=== PATIENT | female | born 1965 | race Caucasian/White ===

== ENCOUNTER → 2017-02-27 | Outpatient (CLI) | payer MEDICARE, OTHER ==
[2014-11-21 17:16] VITALS: BP 159/72
[~2017-02-27] MED LIST: ASCO1500 PO; ASPI-630 PO; ATOR20TA PO; Albuterol Sulfate NEB; CALC600T15 PO; CIPR500T6 PO; CLON0.5T PO; LIDO700A4 TP; OXCA300T3 PO; PANT40TA3 PO; PRAZ2CAP2 PO; QUET100T4 PO; QUET300T5 PO; TRAM-48 PO; VITA150T PO
--- NOTE | 2017-02-28 08:31 | RAD ---
Indication knee pain. 2 AP standing views incorporating both knees were obtained as well as a lateral view involving the left knee and again a sunrise view incorporating both knees. Note is made of a previous examination 08/12/2013. There are degenerative changes involving the left knee which have progressed relative to the previous exam. This is manifested primarily as medial joint space compartment narrowing and some patellofemoral narrowing. Very mild degenerative change involving the medial joint space compartment of the right knee is additionally noted. IMPRESSION: Degenerative changes involving both knees left greater than right
== END | disposition home or self-care (01) ==
LOC: DXRAD 09:20
PROVIDERS: ATTEND Orthopaedic Surgery
DX: M17.0 Bilateral primary osteoarthritis of knee (principal)
CPT/HCPCS: 73564

== ENCOUNTER → 2017-04-04 | Outpatient (CLI) | payer MEDICARE, OTHER ==
[2014-11-21 17:16] VITALS: BP 159/72
--- NOTE | 2017-04-04 08:33 | RAD ---
Abdominal ultrasound, 04/04/2017: History: Right upper quadrant pain The gallbladder is within normal limits in size. There is no sonographic evidence of cholelithiasis. The gallbladder wall is at the upper limits of normal in thickness. The common hepatic duct measures 7-8 mm which is mildly enlarged. The distal duct was obscured by overlying bowel. No intrahepatic biliary ductal dilatation is seen. The liver measures 19-20 cm in craniocaudad extent. It demonstrates increased echogenicity, most commonly due to fatty change. No hepatic mass is evident. The visualized portions of the pancreatic body are unremarkable. Other portions of the pancreas were obscured by overlying bowel. The inferior vena cava and aorta were also poorly visualized due to bowel. The spleen is at the upper limits of normal in size measuring 13.3 cm in craniocaudad extent. The kidneys are unremarkable. No free fluid is evident in the abdomen. IMPRESSION: 1. Mild hepatomegaly with increased hepatic echogenicity suggesting hepatic steatosis. 2. Borderline splenomegaly. 3. Mild enlargement of the common hepatic duct. Correlation with laboratory findings is suggested in determining the significance of this finding. 4. No sonographic evidence of cholelithiasis.
== END | disposition home or self-care (01) ==
LOC: US 06:58
PROVIDERS: ATTEND Nurse Practitioner Family
DX: R10.11 Right upper quadrant pain (principal); R74.8 Abnormal levels of other serum enzymes; R16.0 Hepatomegaly, not elsewhere classified
CPT/HCPCS: 76700

== ENCOUNTER → 2017-04-08 | Outpatient (CLI) | payer MEDICARE, OTHER ==
[2014-11-21 17:16] VITALS: BP 159/72
--- NOTE | 2017-04-08 14:46 | RAD ---
CT abdomen and pelvis without contrast 04/08/2017 Clinical indication: Right upper quadrant pain, flank pain, hematuria for 6 months. Comparison: None. Technique: Multiple CT helical acquisition of the abdomen and pelvis is obtained without contrast according to standard protocol. Coronal sagittal reformations were obtained. PQRS Compliance Statement: One or more of the following individualized dose reduction techniques were utilized for this examination: 1. Automated exposure control 2. Adjustment of the mA and/or kV according to patient size 3. Use of iterative reconstruction technique Findings: Abdomen and pelvis: 3 mm noncalcified nodule in the left lung base which does not need to be followed according to new guidelines. Minimal linear atelectasis and/or scarring in the lingula. Heart size is normal with partial visualization of coronary artery calcifications. Evaluation of the solid abdominopelvic viscera, lymphadenopathy and vasculature is limited in the absence of intravenous contrast. There is moderate diffuse hepatic steatosis with areas of focal fatty sparing adjacent to the gallbladder fossa. Unenhanced contour of the gallbladder, spleen, adrenal glands and pancreas are within normal limits. Both council kidneys are present without hydroureteronephrosis or urolithiasis. Abdominal aorta is normal in caliber with mild aortoiliac calcified atheromatous disease. Small and large bowel loops are normal in caliber without obstruction. Appendix is normal in appearance. No abdominal free fluid. No retroperitoneal or mesenteric lymphadenopathy. Mildly distended and unopacified urinary bladder within normal limits. Prior hysterectomy with the vaginal cuff within normal limits. No iliac or inguinal lymphadenopathy. No pelvic free fluid. There are no destructive osseous lesions. Impression: 1. Moderate diffuse hepatic steatosis. Clinical correlation with liver enzymes is recommended. 2. No urolithiasis or hydroureteronephrosis.
== END | disposition home or self-care (01) ==
LOC: CT 12:32
PROVIDERS: ATTEND Nurse Practitioner Family
DX: K76.0 Fatty (change of) liver, not elsewhere classified (principal); R31.9 Hematuria, unspecified
CPT/HCPCS: 74176

== ENCOUNTER → 2017-10-27 | Outpatient (CLI) | payer MEDICARE, OTHER ==
[2014-11-21 17:16] VITALS: BP 159/72
[~2017-10-27] VITALS: Ht 162.6 cm; Wt 104.3 kg
[~2017-10-27] MED LIST changes: +SINCALIDE 2.09 MCG in IV NORMAL SALINE 50ML 30 ML IV ONE
--- NOTE | 2017-10-27 12:24 | RAD ---
Hepatobiliary scan with gallbladder ejection fraction Clinical indications: Chronic persistent right upper quadrant pain. Nausea and vomiting. Technique: After IV infusion of 5.5 mCi of technetium 99m Choletec, anterior and right lateral planar images of the upper abdomen were performed in sequential fashion and a time/activity curve was generated. After IV infusion of 2.1 uCi of cholecystokinin, anterior planar images of the upper abdomen were performed in sequential fashion and a time/activity curve was generated and a gallbladder ejection fraction was measured and calculated. Comparison: No previous nuclear medicine scan available for comparison. Abdomen ultrasound study dated April 04, 2017. Findings: Homogeneous uptake is seen throughout the liver. Radiotracer activity is seen within the gallbladder x 30 minutes. Radiotracer activity is seen within the duodenum x 10 minutes. Gallbladder ejection fraction is measured and calculated to be 29.5%. Normal is greater than 35%. IMPRESSION: Cystic duct is patent. Low gallbladder ejection fraction of 29.5%.
== END | disposition home or self-care (01) ==
LOC: NM 07:45
PROVIDERS: ATTEND Internal Medicine Gastroenterology
DX: G89.29 Other chronic pain (principal); R10.11 Right upper quadrant pain; J44.9 Chronic obstructive pulmonary disease, unspecified; I10 Essential (primary) hypertension; F17.200 Nicotine dependence, unspecified, uncomplicated; Z95.5 Presence of coronary angioplasty implant and graft
CPT/HCPCS: 78226; 96374; 96375; A9537; J2805

== ENCOUNTER → 2018-11-03 | Outpatient (CLI) | payer OTHER ==
[2014-11-21 17:16] VITALS: BP 159/72
[~2018-11-03] MED LIST changes: +IOHEXOL 240 MG/ML 50ML VIAL. ONE; +IOHEXOL 300 MG/ML 75 ML VIAL. IV ONE; -SINCALIDE 2.09 MCG in IV NORMAL SALINE 50ML 30 ML IV ONE
--- NOTE | 2018-11-03 12:12 | RAD ---
CT ABD PEL W/ORAL CONTRST ONLY Indication: Right upper quadrant and right lower quadrant periumbilical pain for 4 days, epigastric discomfort Technique: CT imaging was performed of the abdomen and pelvis, multiplanar reconstruction images submitted. No intravenous contrast was given due to inability to obtain adequate intravenous access. Oral contrast was given. One or more of the following individualized dose reduction techniques were utilized for this examination: 1. Automated exposure control 2. Adjustment of the mA and/or kV according to patient size 3. Use of iterative reconstruction technique. Comparison: April 08, 2017 Findings: There is again mild likely fibrotic change of the lingula. Accurate evaluation of abdominal visceral organs is limited without intravenous contrast, no new obvious focal abnormality liver, spleen, pancreas. There has been cholecystectomy. There is now mild right hydronephrosis, no obstructive calculus. There is no hydroureter or renal calculus. There is no adrenal nodularity. Gastric wall thickening is difficult to exclude although findings could be accentuated by incomplete distention. Bowel is not considered significantly dilated. There is no free air or free fluid. Normal caliber appendix is visualized without adjacent inflammatory-type change. Uterus is absent. There is multilevel lumbar facet degenerative change, minimal grade 1 anterior spondylolisthesis L4-5. There is degenerative disc disease greatest L3-4 and L4-5, also at T12-L1. There is likely at least mild lateral recess stenosis greater on the left at L4-5. IMPRESSION: 1. There is now mild right hydronephrosis, no right hydroureter or obstructive calculus identified. Gastric wall thickening as could be associated with gastritis is difficult to exclude although findings could be due to incomplete distention. Otherwise no significant acute abnormality is identified, no CT evidence of acute appendicitis. 2. There is facet degenerative change greater inferiorly of the lumbar spine. There is likely at least mild lateral recess stenosis L4-5, grade 1 anterior spondylolisthesis L4-5. There is degenerative disc disease greatest at L3-4 and L4-5. Electronically signed by: Wes Licona MD (11/03/2018 12:09 PM) [id number]
== END | disposition home or self-care (01) ==
LOC: CT 10:33
PROVIDERS: ATTEND Nurse Practitioner Family
DX: M43.16 Spondylolisthesis, lumbar region (principal); M51.36 Other intervertebral disc degeneration, lumbar region; M47.896 Other spondylosis, lumbar region; N13.39 Other hydronephrosis
CPT/HCPCS: 36415; 74176; 82565; 84520

== ENCOUNTER 2018-12-29 12:56 | Emergency (ER) | payer OTHER ==
[~2018-12-29] VITALS: Ht 162.6 cm; Wt 106.1 kg
[~2018-12-29 12:56] MED LIST changes: -IOHEXOL 240 MG/ML 50ML VIAL. ONE; -IOHEXOL 300 MG/ML 75 ML VIAL. IV ONE
[2018-12-29] MEDS ORDERED: IV NORMAL SALINE 1,000ML 1,000 ML IV SCH (13:02)
--- NOTE | 2018-12-29 13:14 | PHYS DOC ---
Past History Past Medical History: COPD, Heart Disease Past Surgical History: Hysterectomy Alcohol Use: None Drug Use: None Adult General Chief Complaint Chief Complaint: CHEST PAIN HPI HPI 53-year-old female presents via EMS with sudden onset central chest pain. She describes it as a sharp and heavy feeling in her central chest that started 1 hour prior to arrival. The pain was 10 out of 10. She took 2 nitros at home which improved the pain to an 8 out of 10. She was given a third nitroglycerin by EMS as well as a full strength aspirin. Her pain is currently 4 out of 10. She states the pain was worse with deep breathing and she had some mild shortness of breath. She denies nausea, vomiting, diaphoresis. The patient has a history of one stent placed several years ago. Her most recent stress test was about 2 years ago. She does see a parts sales associate regularly. She also has a history of diabetes, hypertension, CHF, COPD. She denies recent symptoms of illness. She denies fever or chills. The patient has had increased stress lately. Review of Systems Review of Systems Constitutional: Denies fever or chills [] Eyes: Denies change in visual acuity, redness, or eye pain [] HENT: Denies nasal congestion or sore throat [] Respiratory: Mild shortness of breath [] Cardiovascular: No additional information not addressed in HPI [] GI: Denies abdominal pain, nausea, vomiting, bloody stools or diarrhea [] : Denies dysuria or hematuria [] Musculoskeletal: Denies back pain or joint pain [] Integument: Denies rash or skin lesions [] Neurologic: Denies headache, focal weakness or sensory changes [] Endocrine: Denies polyuria or polydipsia [] All other systems were reviewed and found to be within normal limits, except as documented in this note. Current Medications Current Medications Current Medications Medications (Trade) Dose Ordered Sig/Florin Start Time Stop Time Status Last Admin Dose Admin Sodium Chloride 1,000 ml @ 1,000 mls/hr Q1H 12/29/18 13:02 12/29/18 14:01 UNV Allergies Allergies Allergies Coded Allergies Type Severity Reaction Last Updated Verified tetracycline Allergy Intermediate Unknown 05/16/14 Yes Physical Exam Physical Exam Constitutional: Well developed, morbid obesity, well nourished, no acute distress, non-toxic appearance. [] HENT: Normocephalic, atraumatic, bilateral external ears normal, oropharynx moist, no oral exudates, nose normal. [] Eyes: PERRLA, EOMI, conjunctiva normal, no discharge. [] Neck: Normal range of motion, no tenderness, supple, no stridor. [] Cardiovascular:Heart rate regular rhythm, no murmur [] Lungs & Thorax: Bilateral breath sounds clear to auscultation [] Abdomen: Bowel sounds normal, soft, RUQ tenderness, palpable nodule, soft, mobile, just under right breast, no pulsatile masses. [] Skin: Warm, dry, no erythema, no rash. [] Back: No tenderness, no CVA tenderness. [] Extremities: No tenderness, no cyanosis, no clubbing, ROM intact, no edema. [] Neurologic: Alert and oriented X 3, normal motor function, normal sensory function, no focal deficits noted. [] Psychologic: Affect normal, judgement normal, mood normal. [] EKG EKG Sinus rhythm, rate 81, normal axis, no ST elevations or depressions, QTC 481[] Radiology/Procedures Radiology/Procedures [] Impressions: PORTABLE CHEST 1V Clinical Indication: CHEST PAIN Comparison: AP chest, May 16, 2014. Findings: The cardiomediastinal silhouette is normal. Lungs are clear. There is no pneumothorax. No pleural effusion is appreciated. No acute bone abnormality. Degenerative endplate spurring of the thoracic spine. Cervical spine fusion hardware, partially seen. IMPRESSION: No acute cardiopulmonary process. Electronically signed by: Alvarez Madison MD (12/29/2018 1:56 PM) [id number] DICTATED AND SIGNED BY: ALVAREZ MADISON MD DATE: 12/29/18 1356 CC: MEENAKSHI CAZARES DO; ANA MARIA PEREZ MD ~ Course & Med Decision Making Course & Med Decision Making Pertinent Labs and Imaging studies reviewed. (See chart for details) The patient's labs are unremarkable. Her troponin is negative. Her chest x-ray is unremarkable. Her EKG is unremarkable except for prolonged QT. The patient has a hard score of 5. Her pain has improved and is now gone at this time. I advised the patient that the best course of action is to admit her to the hospital and trend her labs. The patient does not want to do this as she just came back from vacation and has things to do at home. She does live with other people. She is promised me that if she has any further pain and even consider take nitroglycerin she will come back to the hospital. I explained that this was higher risk that she could have a significant event. She states verbal understanding, but would still like to go home. She will be discharged. [] Dragon Disclaimer Dragon Disclaimer This electronic medical record was generated, in whole or in part, using a voice recognition dictation system. Departure Departure: Impression: Primary Impression: Chest pain Disposition: HOME, SELF-CARE Condition: STABLE Referrals: ANA MARIA PEREZ MD (PCP) Patient Instructions: Chest Pain (Nonspecific), [id number] Problem Qualifiers Primary Impression: Chest pain Chest pain type: precordial pain Qualified Codes: R07.2 - Precordial pain MEENAKSHI CAZARES DO Dec 29, 2018 13:14
[2018-12-29 13:24] LABS: BASO # 0.1 x10^3/uL (0.0-0.2); BASO % 1 % (0-3); EOS # 0.2 x10^3/uL (0.0-0.7); EOS % 2 % (0-3); HEMATOCRIT 39.2 % (36.0-47.0); HEMOGLOBIN 13.6 g/dL (12.0-15.5); LYMPH # 2.7 x10^3/uL (1.0-4.8); LYMPH % 32 % (24-48); MEAN CORPUSCULAR HEMOGLOBIN 33 pg (25-35); MEAN CORPUSCULAR HGB CONC 35 g/dL (31-37); MEAN CORPUSCULAR VOLUME 95 fL (79-100); MONO # 0.5 x10^3/uL (0.0-1.1); MONO % 6 % (0-9); NEUT # 5.1 x10^3uL (1.8-7.7); NEUT % 60 % (31-73); PLATELET COUNT 294 x10^3/uL (140-400); RED BLOOD COUNT 4.11 x10^6/uL (3.50-5.40); RED CELL DISTRIBUTION WIDTH 13.4 % (11.5-14.5); WHITE BLOOD COUNT 8.6 x10^3/uL (4.0-11.0)
[2018-12-29 13:45] LABS: ALBUMIN 4.2 g/dL (3.4-5.0); ALBUMIN/GLOBULIN RATIO 1.2 (1.0-1.7); CALCIUM 9.4 mg/dL (8.5-10.1); CREATININE 1.1 mg/dL (0.6-1.0); POTASSIUM 3.7 mmol/L (3.5-5.1); TOTAL BILIRUBIN 0.4 mg/dL (0.2-1.0); TOTAL PROTEIN 7.7 g/dL (6.4-8.2)
--- NOTE | 2018-12-29 13:59 | RAD ---
PORTABLE CHEST 1V Clinical Indication: CHEST PAIN Comparison: AP chest, May 16, 2014. Findings: The cardiomediastinal silhouette is normal. Lungs are clear. There is no pneumothorax. No pleural effusion is appreciated. No acute bone abnormality. Degenerative endplate spurring of the thoracic spine. Cervical spine fusion hardware, partially seen. IMPRESSION: No acute cardiopulmonary process. Electronically signed by: Alvarez Nwesome MD (12/29/2018 1:56 PM) [id number]
[2018-12-29 14:17] VITALS: BP 138/70
--- NOTE | 2018-12-29 17:47 | EKG ---
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
== END 2018-12-29 14:16 | disposition home or self-care (01) ==
LOC: ER 12:56
DX: R07.2 Precordial pain (principal); J44.9 Chronic obstructive pulmonary disease, unspecified; E11.9 Type 2 diabetes mellitus without complications; I11.0 Hypertensive heart disease with heart failure; I50.9 Heart failure, unspecified; Z88.1 Allergy status to other antibiotic agents
CPT/HCPCS: 36415; 71045; 80053; 83880; 84484; 85025; 93005; 99285-25; J7030

== ENCOUNTER 2020-05-04 15:41 | Emergency (ER) | payer OTHER ==
[~2020-05-04] VITALS: Ht 162.6 cm; Wt 100.8 kg
[2020-05-04] MEDS ORDERED: HYDR-3165 PO (16:08)
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
[2020-05-04 17:22] VITALS: BP 120/80
== END 2020-05-04 17:22 | disposition home or self-care (01) ==
LOC: ER 15:41
DX: R51 Headache (principal); R07.81 Pleurodynia; I50.9 Heart failure, unspecified; J44.9 Chronic obstructive pulmonary disease, unspecified; E11.9 Type 2 diabetes mellitus without complications; Z88.1 Allergy status to other antibiotic agents; V89.2XXA Person injured in unspecified motor-vehicle accident, traffic, initial encounter; Y93.I9 Activity, other involving external motion; Y92.481 Parking lot as the place of occurrence of the external cause; Y99.8 Other external cause status
CPT/HCPCS: 70450; 71101; 72125; 99285-25

== ENCOUNTER 2021-02-08 07:59 | Emergency (ER) | payer OTHER, MEDICAID ==
[~2021-02-08] VITALS: Ht 162.6 cm; Wt 100.8 kg
[~2021-02-08 07:59] MED LIST changes: +HYDR-3165 PO
--- NOTE | 2021-02-08 08:30 | PHYS DOC ---
Past History Past Medical History: CHF, COPD, Diabetes, Heart Disease Past Surgical History: Hysterectomy, Knee Replacement, Oophorectomy, Other Additional Past Surgical Histo: RIGHT SHOULDER SURGERY Alcohol Use: Occasionally Drug Use: Marijuana Adult General Chief Complaint Chief Complaint: ABDOMINAL PAIN [facility] HPI Patient is a 55-year-old female presenting for abdominal pain. Onset was 4 days ago without any known inciting event, trauma or ingestion. Nothing known makes better or worse. Patient reports a sharp stabbing pain to left lower quadrant that sometimes radiates into epigastric area. Reports symptoms wax and wane without known exacerbating factors. Reports at worst, pain is 7/10 severity but otherwise improves to 3/10 severity. Reports episode this morning lasted longer than usual at a higher intensity concerning her prompting her to come in for evaluation. Patient has prior history of cholecystectomy and total hysterectomy for noncancerous reasons. Admits smoking marijuana daily with no increase usage or frequency, denies alcohol or other illicit drug use. No recent fever, sick contacts, recent travel, chest pain, shortness of breath, nausea or vomit, issues with constipation or diarrhea, no dysuria. Has had colonoscopy approximately 1 year ago and was unremarkable Review of Systems Review of Systems Fourteen body systems of review of systems have been reviewed. See HPI for pertinent positives and negative responses, other roblero all other systems are negative, non-pertinent or non-contributory Allergies Allergies Allergies Coded Allergies Type Severity Reaction Last Updated Verified tetracycline Allergy Intermediate Unknown 05/04/20 Yes Physical Exam Physical Exam Constitutional: Well developed, well nourished, no acute distress, non-toxic appearance. HENT: Normocephalic, atraumatic, bilateral external ears normal, oropharynx moist, no oral exudates, nose normal. Eyes: PERRLA, EOMI, conjunctiva normal, no discharge. Neck: Normal range of motion, no tenderness, supple, no stridor. Cardiovascular: Heart rate regular, sinus rhythm, no murmurs rubs or gallops Lungs & Thorax: Bilateral breath sounds clear to auscultation Abdomen: Bowel sounds normal, soft, left lower quadrant tenderness to palpation with guarding present, no rebound, no masses, no pulsatile masses. Nonsurgical abdomen, no peritoneal signs Skin: Warm, dry, no erythema, no rash. Back: No tenderness, no CVA tenderness. Extremities: No tenderness, no cyanosis, no clubbing, ROM intact, no edema. Neurologic: Alert and oriented X 3, grossly normal motor & sensory function, no focal deficits noted. Psychologic: Affect normal, judgement normal, mood normal. Current Patient Data Vital Signs Vital Signs Date Time Temp Pulse Resp B/P (MAP) Pulse Ox O2 Delivery O2 Flow Rate FiO2 02/08/21 08:09 97.9 50 16 124/61 (82) 96 Room Air Vital Signs Date Time Temp Pulse Resp B/P (MAP) Pulse Ox O2 Delivery O2 Flow Rate FiO2 02/08/21 08:09 97.9 50 16 124/61 (82) 96 Room Air Lab Results Current Medications Medications (Trade) Dose Ordered Sig/Florin Route PRN Reason Start Time Stop Time Status Last Admin Dose Admin Sodium Chloride 1,000 ml @ 1,000 mls/hr 1X ONCE IV 02/08/21 08:45 02/08/21 09:44 DC 02/08/21 09:00 Fentanyl Citrate (Fentanyl 2ml Vial) 50 mcg 1X ONCE IVP 02/08/21 08:45 02/08/21 08:47 DC 02/08/21 09:00 Iohexol (Omnipaque 300 Mg/ml) 75 ml 1X ONCE IV 02/08/21 08:45 02/08/21 08:47 DC 02/08/21 09:37 EKG EKG EKG ordered and interpreted by myself at 0857 hrs. as sinus rhythm at 51 bpm, unremarkable intervals, no axis deviation, no acute ischemic findings, no STEMI Radiology/Procedures Radiology/Procedures INDICATION: Reason: LLQ PAIN / Spl. Instructions: omni 300 75ml iv / History: . COMPARISON: October 2018 TECHNIQUE: Axial CT images obtained through the abdomen and pelvis with contrast. One or more of the following individualized dose reduction techniques were utilized for this examination: 1. Automated exposure control; 2. Adjustment of the mA and/or kV according to patient size; 3. Use of iterative reconstruction technique. FINDINGS: Linear opacity left lower lung could be from atelectasis. Coronary artery calcific atherosclerosis. Multifocal plaque throughout the abdominal aorta including calcific atherosclerosis. No intrahepatic bile duct dilation. Postcholecystectomy changes. Mild prominence of the common bile duct which is commonly seen postoperatively. No peripancreatic fluid collection. No perisplenic hematoma. Mild prominence of the right renal pelvis is again seen but appears slightly decreased from prior. No left-sided hydronephrosis. Urinary bladder is partially distended. The distal sigmoid and rectal region is not very distended with prominence of wall. Appendix measures approximately 6 mm without adjacent inflammatory changes. Degenerative changes the spine with multilevel central canal and neural foraminal stenosis. Left rib fracture with callus formation. IMPRESSION: * No evidence of bowel obstruction. * Appendix is at the upper limits of normal in size without adjacent inflammatory changes. * The distal sigmoid and rectal region is not very distended but there is some apparent mild prominence the wall. Could be from lack of distention but would correlate with symptoms to ensure that there is not a pathologic cause such as distal colitis Electronically signed by: Rolando Bowman MD (02/08/2021 10:11 AM) [id number] Heart Score C/O Chest Pain: No HEART Score for Chest Pain: HEART Score for Chest Pain Response (Comments) Value History Slighlty/Non-Suspicious 0 ECG Normal 0 Age >45 - < 65 1 Risk Factors 1 or 2 Risk Factors 1 Troponin < Normal Limit 0 Total 2 Risk Factors: Risk Factors: DM, Current or recent (<one month) smoker, HTN, HLP, family history of CAD, obesity. Risk Scores: Risk Factors: DM, Current or recent (<one month) smoker, HTN, HLP, family history of CAD, obesity. Course & Med Decision Making Course & Med Decision Making Discussed with the patient all findings and diagnostic testing. I discussed most likely diagnosis of abdominal pain unspecified. Patient symptoms improved with ER intervention. Joint decision to defer antibiotic use due to no apparent reason for illness just suspect colitis, supportive care advised. As such, I stressed need for close outpatient follow-up to review today's ER visit. Strict return precautions were also discussed at length with good understanding by patient. Patient voiced understanding and agreement with the plan. Patient knows to come back for repeat evaluation if concerning signs or symptoms present prior to outpatient follow-up. Hemodynamically stable, ambulatory and well-appearing at time of disposition. Critical Care Time This patient required critical care. Due to the fact that the patient required a significant amount of one on one physician - patient contact time, ordering and review of studies, arranging urgent treatment with development of a management plan, evaluation of patients response to treatment with frequent reassessments, and discussions with other providers this patient required 30 minutes of critical care time. Critical care time was indicated due to the inherent instability and/or potential for instability in this patient. The critical care time that is allocated to this patient is above and beyond any time spent on any other billable procedures performed on this patient. Dragon Disclaimer Dragon Disclaimer This electronic medical record was generated, in whole or in part, using a voice recognition dictation system. Departure Departure: Impression: Primary Impression: Nonspecific abdominal pain Disposition: HOME / SELF CARE / HOMELESS Condition: IMPROVED Referrals: ANA MARIA PEREZ MD (PCP) Patient Instructions: Abdominal Pain (Nonspecific) Additional Instructions: You have been evaluated in the Emergency Department today for abdominal pain. Your evaluation was not suggestive of any emergent condition requiring medical intervention at this time. However, some abdominal problems make take more time to appear. Therefore, it is important for you to watch for any new symptoms or worsening of your current condition. As discussed, please contact and follow-up with your primary care physician within upcoming x1 week for repeat evaluation Return to the Emergency Department if you experience worsening pain, persistent fevers greater than 100.4, recurrent vomiting, blood in vomit, blood in stool, dark tarry stool, chest pain, difficulty breathing, or any other concerning symptoms. It was a pleasure to take care of you and I wish you the best going forward YEIMI PALOMO DO Feb 08, 2021 08:30
[2021-02-08] MEDS ORDERED: IOHEXOL 300 MG/ML 75 ML VIAL. IV ONE (08:45)
[2021-02-08] MEDS ORDERED: IV NORMAL SALINE 1,000ML 1,000 ML IV ONE (08:45)
[2021-02-08 09:11] LABS: BASO # 0.1 x10^3/uL (0.0-0.2); BASO % 1 % (0-3); EOS # 0.1 x10^3/uL (0.0-0.7); EOS % 2 % (0-3); HEMATOCRIT 41.7 % (36.0-47.0); HEMOGLOBIN 13.8 g/dL (12.0-15.5); LYMPH # 1.6 x10^3/uL (1.0-4.8); LYMPH % 18 % (24-48); MEAN CORPUSCULAR HEMOGLOBIN 32 pg (25-35); MEAN CORPUSCULAR HGB CONC 33 g/dL (31-37); MEAN CORPUSCULAR VOLUME 97 fL (79-100); MONO # 0.5 x10^3/uL (0.0-1.1); MONO % 6 % (0-9); NEUT # 6.8 x10^3uL (1.8-7.7); NEUT % 74 % (31-73); PLATELET COUNT 213 x10^3/uL (140-400); RED BLOOD COUNT 4.31 x10^6/uL (3.50-5.40); RED CELL DISTRIBUTION WIDTH 13.2 % (11.5-14.5); WHITE BLOOD COUNT 9.1 x10^3/uL (4.0-11.0)
[2021-02-08 09:17] LABS: HEMOGLOBIN ISTAT 13.6 gm/dL
[2021-02-08 10:00] VITALS: BP 149/85
--- NOTE | 2021-02-08 10:13 | RAD ---
INDICATION: Reason: LLQ PAIN / Spl. Instructions: omni 300 75ml iv / History: . COMPARISON: October 2018 TECHNIQUE: Axial CT images obtained through the abdomen and pelvis with contrast. One or more of the following individualized dose reduction techniques were utilized for this examinat ion: 1. Automated exposure control; 2. Adjustment of the mA and/or kV according to patient size; 3 . Use of iterative reconstruction technique. FINDINGS: Linear opacity left lower lung could be from atelectasis. Coronary artery calcific atherosclerosis. Multifocal plaque throughout the abdominal aorta including calcific atherosclerosis. No intrahepatic bile duct dilation. Postcholecystectomy changes. Mild prominence of the common bile d uct which is commonly seen postoperatively. No peripancreatic fluid collection. No perisplenic hematoma. Mild prominence of the right renal pelvis is again seen but appears slightly decreased from prior. No left-sided hydronephrosis. Urinary bladder is partially distended. The distal sigmoid and rectal region is not very distended with prominence of wall. Appendix measures approximately 6 mm without adjacent inflammatory changes. Degenerative changes the spine with multilevel central canal and neural foraminal stenosis. Left rib fracture with callus formation. IMPRESSION: * No evidence of bowel obstruction. * Appendix is at the upper limits of normal in size without adjacent inflammatory changes. * The distal sigmoid and rectal region is not very distended but there is some apparent mild promine nce the wall. Could be from lack of distention but would correlate with symptoms to ensure that there is not a pathologic cause such as distal colitis Electronically signed by: Rolando Bowman MD (02/08/2021 10:11 AM) [id number]
[2021-02-08 13:30] LABS: CALCIUM 8.9 mg/dL (8.5-10.1); CREATININE 0.9 mg/dL (0.6-1.0); POTASSIUM 4.1 mmol/L (3.5-5.1)
[2021-02-08 13:43] LABS: ALBUMIN 3.6 g/dL (3.4-5.0); ALBUMIN/GLOBULIN RATIO 1.2 (1.0-1.7); TOTAL BILIRUBIN 0.2 mg/dL (0.2-1.0); TOTAL PROTEIN 6.5 g/dL (6.4-8.2)
--- NOTE | 2021-02-09 06:20 | EKG ---
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
== END 2021-02-08 11:34 | disposition home or self-care (01) ==
LOC: ER 07:59
DX: R10.32 Left lower quadrant pain (principal); I50.9 Heart failure, unspecified; J44.9 Chronic obstructive pulmonary disease, unspecified; F12.10 Cannabis abuse, uncomplicated; Z88.1 Allergy status to other antibiotic agents; Z90.49 Acquired absence of other specified parts of digestive tract; Z90.710 Acquired absence of both cervix and uterus
CPT/HCPCS: 36415; 74177; 80047; 80053; 83690; 84484; 85025; 93005; 96361; 96374; 99285; J3010; J7030; Q9967

== ENCOUNTER 2021-04-08 13:31 | Emergency (ER) | payer OTHER, MEDICAID ==
[~2021-04-08] VITALS: Ht 162.6 cm; Wt 100.8 kg
[2021-04-08 13:38] VITALS: BP 149/85
--- NOTE | 2021-04-08 14:29 | PHYS DOC ---
Past History Past Medical History: CHF, COPD, Diabetes, Heart Disease (NASRA WALL APRN) Past Surgical History: Hysterectomy, Knee Replacement, Oophorectomy, Other Additional Past Surgical Histo: RIGHT SHOULDER SURGERY (NASRA WALL APRN) Alcohol Use: None Drug Use: Marijuana (NASRA WALL APRN) General Adult EDM: Chief Complaint: BACK PAIN OR INJURY HPI: HPI: Patient is a 55-year-old female presents with lower back pain. Patient states "3 weeks ago was at my son's house when I fell down steps and hurt my lower back". "I was seen by my PCP on and x-rays were negative for fracture". Patient states that she has been taking Flexeril with little relief. Patient is having pain in her lower back that is radiating down her left leg. Pain is worse with ambulation ,patient denies urinary retention or loss of bowel. Patient has history of of high blood pressure, COPD, diabetes (NASRA WALL APRN) Review of Systems: Review of Systems: Constitutional: Denies fever or chills Eyes: Denies change in visual acuity HENT: Denies nasal congestion or sore throat Respiratory: Denies cough or shortness of breath Cardiovascular: Denies chest pain or edema GI: Denies abdominal pain, nausea, vomiting, bloody stools or diarrhea : Denies dysuria Musculoskeletal: Reports lower back pain radiates down left leg Integument: Denies rash Neurologic: Denies headache, focal weakness or sensory changes Endocrine: Denies polyuria or polydipsia Lymphatic: Denies swollen glands Psychiatric: Denies depression or anxiety (NASRA WALL APRN) Allergies: Allergies: Allergies Coded Allergies Type Severity Reaction Last Updated Verified tetracycline Allergy Intermediate Unknown 05/04/20 Yes (NASRA WALL APRN) Physical Exam: PE: Constitutional: Well developed, well nourished, no acute distress, non-toxic appearance. [] HENT: Normocephalic, atraumatic, bilateral external ears normal, oropharynx moist, no oral exudates, nose normal. [] Eyes: PERRLA, EOMI, conjunctiva normal, no discharge. [] Neck: Normal range of motion, no tenderness, supple, no stridor. [] Cardiovascular:Heart rate regular rhythm, no murmur [] Lungs & Thorax: Bilateral breath sounds clear to auscultation [] Abdomen: Bowel sounds normal, soft, no tenderness, no masses, no pulsatile masses. [] Skin: Warm, dry, no erythema, no rash. [] Back: Lower back tenderness, no CVA tenderness. [] Extremities: Left leg tenderness, no cyanosis, no clubbing, ROM intact, no edema. [] Neurologic: Alert and oriented X 3, normal motor function, normal sensory function, no focal deficits noted. [] Psychologic: Affect normal, judgement normal, mood normal. [] (NASRA WALL APRN) Current Patient Data: Vital Signs: Vital Signs Date Time Temp Pulse Resp B/P (MAP) Pulse Ox O2 Delivery O2 Flow Rate FiO2 04/08/21 13:38 98.0 57 16 149/85 100 Room Air (NASRA WALL APRN) EKG: EKG: [] (NASRA WALL APRN) Radiology/Procedures: Radiology/Procedures: [] (NASRA WALL APRN) Heart Score: C/O Chest Pain: No Risk Factors: Risk Factors: DM, Current or recent (<one month) smoker, HTN, HLP, family history of CAD, obesity. Risk Scores: Score 0 - 3: 2.5% MACE over next 6 weeks - Discharge Home Score 4 - 6: 20.3% MACE over next 6 weeks - Admit for Clinical Observation Score 7 - 10: 72.7% MACE over next 6 weeks - Early Invasive Strategies (NASRA WALL APRN) Course & Med Decision Making: Course & Med Decision Making Pertinent Labs and Imaging studies reviewed. (See chart for details) 55-year-old female presents with lower back pain that radiates down her left leg. Patient been taking Flexeril at home with little relief. Patient had x- rays done on which was negative. Denies loss of bowel or urinary retention. Patient given Toradol, Flexeril, hydrocodone. Patient to follow-up with her PCP if pain continues. Patient given strict return precautions. Patient states that she understands and is okay with discharge plan plan. [] (NASRA WALL APRN) Course & Med Decision Making Did not see or evaluate patient. Agree with DIRECTOR OF CASINO's work-up and disposition per note (BETO MCLEOD MD) Dragon Disclaimer: Miquel Disclaimer: This electronic medical record was generated, in whole or in part, using a voice recognition dictation system. (ANSRA WALL APRN) Departure Departure: Impression: Primary Impression: Sciatic nerve pain Qualified Codes: M54.32 - Sciatica, left side Additional Impression: Low back pain Qualified Codes: M54.42 - Lumbago with sciatica, left side Disposition: 01 HOME / SELF CARE / HOMELESS Condition: STABLE Referrals: ANA MARIA PEREZ MD (PCP) Patient Instructions: Sciatica, [id number] Additional Instructions: You were seen in the emergency room for low back pain that radiated down your left leg after a fall. You were given hydrocodone, Flexeril, Toradol in the emergency room to treat pain. Please follow-up with your PCP if pain continues. Return emergency room if you have worsening symptoms or concerns. EMERGENCY DEPARTMENT GENERAL DISCHARGE INSTRUCTIONS Thank you for coming to [facility] (ED) today and trusting us with you care. We trust that you had a positivie experience in our Emergency Department. If you wish to speak to the department management, you may call the director at . YOUR FOLLOW UP INSTRUCTIONS ARE FOLLOWS: 1. Do you have a private Doctor? If you do not have a private doctor, please ask for a resource list of physicians or clinics that may be able to assist you with follow up care. 2. The Emergency Physician has interpreted your x-rays. The X-Ray specialist will also review them. If there is a change in the findings, you will be notified in 48 hours when at all possible. 3. A lab test or culture has been done, your results will be reviewed and you will be notified if you need a change in treatment. ADDITIONAL INSTRUCTIONS AND INFORMATION: 1. Your care today has been supervised by a physician who is specially trained in emergency care. Many problems require more than one evaluation for a complete diagnosis and treatment. We recommend that you schedule your follow up appointment as recommended to ensure complete treatment of you illness or injury. If you are unable to obtain follow up care and continue to have a problem, or if your condition worsens, we recommend that you return to the ED. 2. We are not able to safely determine your condition over the phone nor are we able to give sound medical advice over the phone. For these safety reasons, if you call for medical advice we will ask you to come to the ED for further evaluation. 3. If you have any questions regarding these discharge instructions please call the ED at [phone]. SAFETY INFORMATION: In the interest of safety, wellness, and injury prevention; we encourage you to wear your sealbelt, if you smoke; quite smoking, and we encourage family to use a protective helmet for bicycling and other sporting events that present an increased risk for head injury. IF YOUR SYMPTOMS WORSEN OR NEW SYMPTOMS DEVELOP, OR YOU HAVE CONCERNS ABOUT YOUR CONDITION; OR IF YOUR CONDITION WORSENS WHILE YOU ARE WAITING FOR YOUR FOLLOW UP APPOINTMENT; EITHER CONTACT YOUR PRIMARY CARE DOCTOR, THE PHYSICIAN WHOSE NAME AND NUMBER YOU WERE GIVEN, OR RETURN TO THE ED IMMEDIATELY. NASRA WALL APRN Apr 08, 2021 14:29 BETO MCLEOD MD Apr 08, 2021 17:32
[2021-04-08] MEDS ORDERED: KETOROLAC 15 MG/ML VIAL. IM ONE (14:30)
[2021-04-08] MEDS ORDERED: CYCLOBENZAPRINE 10 MG TABLET. PO ONE (14:30)
[2021-04-08] MEDS ORDERED: HYDROcodone/APAP 5/325MG 1 TAB TABLET PO ONE (14:30)
== END 2021-04-08 15:23 | disposition home or self-care (01) ==
LOC: ER 13:31
DX: M54.42 Lumbago with sciatica, left side (principal); J44.9 Chronic obstructive pulmonary disease, unspecified; E11.9 Type 2 diabetes mellitus without complications; Z90.710 Acquired absence of both cervix and uterus; F12.10 Cannabis abuse, uncomplicated; Z88.1 Allergy status to other antibiotic agents
CPT/HCPCS: 96372; 99283; J1885

== ENCOUNTER → 2021-05-01 | Outpatient (CLI) | payer OTHER ==
[2021-04-08 13:38] VITALS: BP 149/85
--- NOTE | 2021-05-01 10:40 | RAD ---
EXAM: Bilateral knees, 2 views. HISTORY: Pain. COMPARISON: None. FINDINGS: 2 views of both knees are obtained. There is a right knee arthroplasty in expected position . There is no evidence of arthroplasty loosening or periprosthetic fracture. There is a small right k nee effusion. There is mild medial compartment joint space narrowing and medial and patellofemoral compartment spur ring involving the left knee. There is a small left knee effusion. IMPRESSION: 1. Right knee arthroplasty in expected position. There is a small right knee effusion. 2. Mild medial and patellofemoral compartment predominant osteoarthritis of the left knee with small joint effusion. Electronically signed by: Leah Livingston MD (05/01/2021 10:38 AM) [id number]
== END ==
LOC: RAD 09:10
PROVIDERS: ATTEND Family Medicine
DX: M17.12 Unilateral primary osteoarthritis, left knee (principal); M25.461 Effusion, right knee; M25.462 Effusion, left knee; Z96.651 Presence of right artificial knee joint
CPT/HCPCS: 73560-50

== ENCOUNTER 2021-05-31 13:46 | Emergency (ER) | payer OTHER ==
[~2021-05-31] VITALS: Ht 162.6 cm; Wt 80.0 kg
--- NOTE | 2021-05-31 14:34 | PHYS DOC ---
Past History Past Medical History: CHF, COPD, Diabetes, Heart Disease Past Surgical History: Hysterectomy, Knee Replacement, Oophorectomy, Other Additional Past Surgical Histo: RIGHT SHOULDER SURGERY Alcohol Use: None Drug Use: Marijuana General Adult EDM: Chief Complaint: ABDOMINAL PAIN HPI: HPI: Patient is a 55-year-old female who presents with right lower abdominal pain. Patient states she was seen at her PCP yesterday and given pain medication along with an x-ray. Patient is also reporting nausea and vomiting. Patient states symptoms started 3 days ago. Patient took a laxative yesterday, and bowel movement this morning was liquid. Patient's rating pain 04/17. Review of Systems: Review of Systems: ROS At least 10 ROS systems have been reviewed and are negative except as documented in the HPI. General: Negative except as outlined in HPI above. Skin: Negative except as outlined in HPI above. HEENT: Negative except as outlined in HPI above. Neck: Negative except as outlined in HPI above. Respiratory: Negative except as outlined in HPI above.. Cardiovascular: Negative except as outlined in HPI above. Abdomen: Negative except as outlined in HPI above. : Negative except as outlined in HPI above. Back/MSK: Negative except as outlined in HPI above. Neuro: Negative except as outlined in HPI above. Psych: Negative except as outlined in HPI above. Allergies: Allergies: Allergies Coded Allergies Type Severity Reaction Last Updated Verified tetracycline Allergy Intermediate Unknown 05/04/20 Yes Physical Exam: PE: Constitutional: Well developed, well nourished, no acute distress, non-toxic appearance. [] HENT: Normocephalic, atraumatic, bilateral external ears normal, oropharynx moist, no oral exudates, nose normal. [] Eyes: PERRLA, EOMI, conjunctiva normal, no discharge. [] Neck: Normal range of motion, no tenderness, supple, no stridor. [] Cardiovascular:Heart rate regular rhythm, no murmur [] Lungs & Thorax: Bilateral breath sounds clear to auscultation [] Abdomen: Bowel sounds normal, soft, no tenderness, no masses, no pulsatile masses. [] Skin: Warm, dry, no erythema, no rash. [] Back: No tenderness, no CVA tenderness. [] Extremities: No tenderness, no cyanosis, no clubbing, ROM intact, no edema. [] Neurologic: Alert and oriented X 3, normal motor function, normal sensory function, no focal deficits noted. [] Psychologic: Affect normal, judgement normal, mood normal. [] Current Patient Data: Vital Signs: Vital Signs Date Time Temp Pulse Resp B/P (MAP) Pulse Ox O2 Delivery O2 Flow Rate FiO2 05/31/21 14:03 98.3 53 16 144/73 (96) 98 Room Air EKG: EKG: [] Radiology/Procedures: Radiology/Procedures: []CT STUDY OF THE ABDOMEN AND PELVIS WITHOUT CONTRAST CLINICAL INDICATIONS: Lower abdominal pain. TECHNIQUE: Noncontrast helical CT scanning of the abdomen and pelvis was performed. Without contrast, the sensitivity to detect organ pathology and GI tract pathology is decreased. PQRS compliance Statement One or more of the following individualized dose reduction techniques were utilized for this study: 1. Automated exposure control 2. Adjustment of the mA and/or kV according to patient size 3. Use of iterative reconstruction technique COMPARISON: February 08, 2021. FINDINGS: The liver and spleen and pancreas are unremarkable on this noncontrast study. The gallbladder is surgically absent. The extra hepatic bile duct is dilated measuring up to 18 mm. This has increased in size from the prior study. No adrenal mass is seen. Both kidneys are unremarkable on this noncontrast study. No hydronephrosis or hydroureter or urinary tract stone is evident. Urinary bladder is not distended. No focal aneurysmal dilatation of the abdominal aorta is seen. Mesenteric lymph nodes are seen which are not bulky in size. Therefore, it may be reactive. There is associated mesenteric edema. There is dilatation of the stomach and duodenum and proximal jejunum just distal to the ligament of Treitz. The rest of the small bowel is not as dilated. However no discrete transition point is seen. Small bowel loops are filled with fluid. Therefore, the findings may reflect gastroenteritis. Early small bowel obstruction cannot be excluded however. The colon is not distended. The appendix and terminal ileum are unremarkable. No free air or free fluid is evident. No lung base consolidation is evident. No lytic process evident. Grade 1 anterolisthesis of L4-5 is seen secondary to facet arthropathy. This results in severe spinal canal stenosis. IMPRESSION: There is dilatation of stomach and duodenum and proximal jejunum without discrete transition point. Fluid-filled small bowel loops are seen diffusely. Therefore, findings may represent gastroenteritis. There is mesenteric edema and reactive mesenteric lymphadenitis. Partial small bowel obstruction is not excluded. Therefore, recommend continued clinical and radiographic follow-up. Progressive dilatation of the extrahepatic biliary tree measuring up to 18 mm. This may be secondary to reservoir effect after cholecystectomy but recommend correlation with liver function tests. Grade 1 anterolisthesis of L4-5 with severe spinal canal stenosis. Electronically signed by: Richard Crowe MD (05/31/2021 4:48 PM) [id number] XR CHEST 1V Clinical History: Reason: ABD PAIN, CHEST PAIN, CONFUSION / Spl. Instructions: / History: Technique: AP view of the chest was obtained at 05/31/2021 2:41 PM. Comparison: None. Findings: The cardiomediastinal silhouette is normal. The pulmonary vasculature is normal. The lungs and pleural margins are clear. Impression: No evidence of an acute cardiopulmonary process. Electronically signed by: Kristian Barbosa III, MD (05/31/2021 3:05 PM) [id number] Heart Score: C/O Chest Pain: No Risk Factors: Risk Factors: DM, Current or recent (<one month) smoker, HTN, HLP, family history of CAD, obesity. Risk Scores: Score 0 - 3: 2.5% MACE over next 6 weeks - Discharge Home Score 4 - 6: 20.3% MACE over next 6 weeks - Admit for Clinical Observation Score 7 - 10: 72.7% MACE over next 6 weeks - Early Invasive Strategies Course & Med Decision Making: Course & Med Decision Making Pertinent Labs and Imaging studies reviewed. (See chart for details) [] 55-year-old female presents with right lower abdominal pain. Patient also has nausea and vomiting. Symptoms started 3 days ago. Patient denies any abdominal surgeries. CT abdomen pelvis without contrast ordered to rule out obstruction. CBC, CMP, lipase, UA. Patient given morphine for pain and Zofran for nausea. Patient is requesting second dose of pain medication due to pain. CT of abdomen pelvis shows possible small bowel obstruction. Discussed results with patient. Explained to patient that she would mostly need to be admitted to let her bowel rest and also for pain control. I consulted Dr. Echols who agreed to see patient at [facility] for possible small bowel obstruction. Spoke with Dr. Arteaga who accepted patient at [facility]. Dr. Arteaga requested NG tube be placed. Patient agrees with admission plan. Dragon Disclaimer: Dragon Disclaimer: This electronic medical record was generated, in whole or in part, using a voice recognition dictation system. Departure Departure: Referrals: ANA MARIA PEREZ MD (PCP) NASRA WALL APRN May 31, 2021 14:34
[2021-05-31] MEDS ORDERED: MORPHINE SULFATE 4 MG/ML DISP.SYRIN. IV ONE ×2 (14:45→17:15)
[2021-05-31] MEDS ORDERED: ONDANSETRON PF 4 MG/2 ML VIAL. IVP ONE (14:45)
--- NOTE | 2021-05-31 15:07 | RAD ---
XR CHEST 1V Clinical History: Reason: ABD PAIN, CHEST PAIN, CONFUSION / Spl. Instructions: / History: Technique: AP view of the chest was obtained at 05/31/2021 2:41 PM. Comparison: None. Findings: The cardiomediastinal silhouette is normal. The pulmonary vasculature is normal. The lungs and pleura l margins are clear. Impression: No evidence of an acute cardiopulmonary process. Electronically signed by: Kristian Barbosa III, MD (05/31/2021 3:05 PM) [facility]
[2021-05-31 15:09] LABS: BASO % 1 % (0-3); EOS # 0.1 x10^3/uL (0.0-0.7); EOS % 2 % (0-3); HEMATOCRIT 39.3 % (36.0-47.0); HEMOGLOBIN 13.6 g/dL (12.0-15.5); LYMPH # 1.3 x10^3/uL (1.0-4.8); LYMPH % 18 % (24-48); MEAN CORPUSCULAR HEMOGLOBIN 32 pg (25-35); MEAN CORPUSCULAR HGB CONC 35 g/dL (31-37); MEAN CORPUSCULAR VOLUME 94 fL (79-100); MONO # 0.7 x10^3/uL (0.0-1.1); MONO % 9 % (0-9); NEUT # 5.3 x10^3uL (1.8-7.7); NEUT % 71 % (31-73); PLATELET COUNT 218 x10^3/uL (140-400); RED CELL DISTRIBUTION WIDTH 13.1 % (11.5-14.5); WHITE BLOOD COUNT 7.5 x10^3/uL (4.0-11.0)
[2021-05-31 15:42] LABS: CALCIUM 8.8 mg/dL (8.5-10.1); CREATININE 0.9 mg/dL (0.6-1.0); POTASSIUM 3.1 mmol/L (3.5-5.1)
[2021-05-31 15:48] LABS: ALBUMIN 3.5 g/dL (3.4-5.0); TOTAL BILIRUBIN 0.4 mg/dL (0.2-1.0); TOTAL PROTEIN 6.9 g/dL (6.4-8.2)
--- NOTE | 2021-05-31 16:14 | EKG ---
[address] [address] Test Date: 2021-05-31 Test Time: 15:17:43 Pat Name: DELFINA ODONNELL Department: Room: Gender: F Gi Asst: GERI : 1965 Requested By: NASRA WALL Order Number: [id number] Reading MD: Measurements Intervals [place] Rate: 57 P: TN: QRS: 10 QRSD: 88 T: 26 QT: 480 QTc: 471 Interpretive Statements IRREGULAR RHYTHM, NO P-WAVE FOUND OTHERWISE NORMAL ECG RI6.02 No previous ECG available for comparison
[2021-05-31] MEDS ORDERED: POTASSIUM CHLORIDE 20 MEQ TABLET.ER. PO ONE (16:30)
[2021-05-31 16:35] LABS: COLOR,URINE AMBER
[2021-05-31 16:36] LABS: BACTERIA,URINE FEW /HPF (0-FEW); BILIRUBIN,URINE NEG (NEG); CLARITY,URINE HAZY; GLUCOSE,URINE NEG (NEG); NITRITE,URINE NEG (NEG); RBC,URINE 0 /HPF (0-2); SQUAMOUS EPITHELIAL CELL,UR MOD /LPF; UROBILINOGEN,URINE 0.2 mg/dL (0.2 mg/dL)
--- NOTE | 2021-05-31 16:50 | RAD ---
CT STUDY OF THE ABDOMEN AND PELVIS WITHOUT CONTRAST CLINICAL INDICATIONS: Lower abdominal pain. TECHNIQUE: Noncontrast helical CT scanning of the abdomen and pelvis was performed. Without contrast, the sensitivity to detect organ pathology and GI tract pathology is decreased. PQRS compliance Statement One or more of the following individualized dose reduction techniques were utilized for this study: 1. Automated exposure control 2. Adjustment of the mA and/or kV according to patient size 3. Use of iterative reconstruction technique COMPARISON: February 08, 2021. FINDINGS: The liver and spleen and pancreas are unremarkable on this noncontrast study. The gallbladd er is surgically absent. The extra hepatic bile duct is dilated measuring up to 18 mm. This has incre ased in size from the prior study. No adrenal mass is seen. Both kidneys are unremarkable on this non contrast study. No hydronephrosis or hydroureter or urinary tract stone is evident. Urinary bladder i s not distended. No focal aneurysmal dilatation of the abdominal aorta is seen. Mesenteric lymph node s are seen which are not bulky in size. Therefore, it may be reactive. There is associated mesenteric edema. There is dilatation of the stomach and duodenum and proximal jejunum just distal to the ligam ent of Treitz. The rest of the small bowel is not as dilated. However no discrete transition point is seen. Small bowel loops are filled with fluid. Therefore, the findings may reflect gastroenteritis. Early small bowel obstruction cannot be excluded however. The colon is not distended. The appendix an d terminal ileum are unremarkable. No free air or free fluid is evident. No lung base consolidation i s evident. No lytic process evident. Grade 1 anterolisthesis of L4-5 is seen secondary to facet arthr opathy. This results in severe spinal canal stenosis. IMPRESSION: There is dilatation of stomach and duodenum and proximal jejunum without discrete transit ion point. Fluid-filled small bowel loops are seen diffusely. Therefore, findings may represent gastr oenteritis. There is mesenteric edema and reactive mesenteric lymphadenitis. Partial small bowel obst ruction is not excluded. Therefore, recommend continued clinical and radiographic follow-up. Progressive dilatation of the extrahepatic biliary tree measuring up to 18 mm. This may be secondary to reservoir effect after cholecystectomy but recommend correlation with liver function tests. Grade 1 anterolisthesis of L4-5 with severe spinal canal stenosis. Electronically signed by: Richard Crowe MD (05/31/2021 4:48 PM) [id number]
[2021-05-31] MEDS ORDERED: IV NORMAL SALINE 1,000ML 1,000 ML IV ONE (17:15)
[2021-06-01 00:15] VITALS: BP 140/79
== END 2021-06-01 00:22 | disposition short-term general hospital (02) ==
LOC: ER 14:03
DX: K56.609 Unspecified intestinal obstruction, unspecified as to partial versus complete obstruction (principal); F12.10 Cannabis abuse, uncomplicated; E11.9 Type 2 diabetes mellitus without complications; Z20.822 Contact with and (suspected) exposure to COVID-19; Z88.1 Allergy status to other antibiotic agents; Z90.710 Acquired absence of both cervix and uterus
CPT/HCPCS: 36415; 71045; 74176; 80053; 81001; 83690; 84484; 85025; 87086; 87426; 93005; 96361; 96365; 96375; 96376; 99285; C9803; J0696; J2270; J2405; J7030; U0003

== ENCOUNTER 2021-08-05 13:35 | Emergency (ER) | payer OTHER, MEDICAID ==
[~2021-08-05] VITALS: Ht 162.6 cm; Wt 83.7 kg
--- NOTE | 2021-08-05 14:06 | PHYS DOC ---
Past History Past Medical History: CHF, COPD, Diabetes, Heart Disease Past Surgical History: Hysterectomy, Knee Replacement, Oophorectomy, Other Additional Past Surgical Histo: RIGHT SHOULDER SURGERY; stent placed in heart Alcohol Use: None Drug Use: Marijuana General Adult EDM: Chief Complaint: SYNCOPE HPI: HPI: Patient is a 56-year-old female coming in after 2 syncopal episodes at home. She says both episodes she fell from standing and felt lightheaded prior to falling. She lives alone is unsure of how long she was passed out. Patient denies any seizure history, she did not bite her tongue but was incontinent of stool, not bladder. Says she feels fine currently. When patient woke up around 11 she felt like her blood sugar was low (it frequently is when she first gets up) she checked it was 44. Patient made her self something to eat. Patient denies history of syncopal episodes, denies any shortness of breath or chest pain. Denies any recent illness. Past medical history significant for diabetes and is taking glipizide, she states she has a pill packs and is not possible she took an accidental extra pill and also has not had her medication changed recently. Patient takes a baby aspirin, no other blood thinners. Has a history of difficult for a cardiac stent placed about 15 years ago. Review of Systems: Review of Systems: All other systems within normal limits except for as noted in the HPI Allergies: Allergies: Allergies Coded Allergies Type Severity Reaction Last Updated Verified tetracycline Allergy Intermediate Unknown 05/04/20 Yes Physical Exam: PE: Constitutional: Well developed, well nourished, no acute distress, non-toxic appearance. [] HENT: Normocephalic, atraumatic, bilateral external ears normal, nose normal. [] Eyes: PERRLA, conjunctiva normal, no discharge. [] Neck: No rigidity, supple, no stridor. [] Cardiovascular: Regular rate and rhythm, brisk cap refill [] Lungs & Thorax: Non labored symmetric respirations, no tachypnea or respiratory distress [] Abdomen: Soft, nondistended. Skin: Warm, dry, no erythema, no rash. [] Back: Unremarkable Extremities: No deformities, range of motion grossly intact, no lower extremity edema [] Neurologic: Alert and oriented X 3, no focal deficits noted. [] Psychologic: Affect normal, judgement normal, mood normal. [] Current Patient Data: Labs: Laboratory Tests Test 08/05/21 13:46 Glucose (Fingerstick) 109 mg/dL (70-99) H Vital Signs: Vital Signs Date Time Temp Pulse Resp B/P (MAP) Pulse Ox O2 Delivery O2 Flow Rate FiO2 08/05/21 13:49 98.7 75 18 122/60 (80) 98 Room Air EKG: EKG: Sinus rhythm, heart rate 50 beats minute, normal axis, no ST ovation or depression, no ectopy. [] Radiology/Procedures: Radiology/Procedures: [] [address] [address] IMAGING REPORT Signed PATIENT: DELFINA ODONNELL ACCOUNT: [id number] : 1965 LOCATION: ER AGE: 56 SEX: F EXAM STATUS: REG ER ORD. PHYSICIAN: OLAF GIBSON MD REASON: syncope/fall PROCEDURE: CT HEAD AND CERVICAL SPINE WO EXAM: 1. CT HEAD WITHOUT CONTRAST. 2. CT CERVICAL SPINE WITHOUT CONTRAST. HISTORY: Syncope, fall, trauma. TECHNIQUE: Computed tomography of the head and cervical spine was performed without intravenous contrast. One or more of the following individualized dose reduction techniques were utilized for this examination: 1. Automated exposure control. 2. Adjustment of the mA and/or kV according to patient size. 3. Use of iterative reconstruction technique. COMPARISON: 05/04/2020. FINDINGS: There is no intracranial hemorrhage. Barr-white differentiation is preserved. The ventricles are normal in size and position. The visualized paranasal sinuses appear clear. The orbits are unremarkable. The temporal bones are unremarkable. The calvarium reveals no suspicious lesions. There are anterior cervical discectomy and fusion changes from C4 through C6. Alignment is maintained. The craniocervical junction is unremarkable. No fractures are identified. There is mild degenerative disc disease at C6-7. There is no prevertebral soft tissue swelling. There is mild uncovertebral osteoarthritis bilaterally at C5-6 without significant neural foraminal stenosis. IMPRESSION: 1. No acute intracranial findings. Next were 2. No cervical fracture or acute malalignment. 3. C4-C6 anterior cervical discectomy and fusion. Mild degenerative changes at C6-7. Electronically signed by: Donna Thompson MD (08/05/2021 3:13 PM) [facility] DICTATED AND SIGNED BY: YESICA THOMPSON MD DATE: 08/05/21 145 CC: OLAF GIBSON MD; FLACO PEREZ MD ~MTH0 [address] [place] [address] IMAGING REPORT Signed PATIENT: DELFINA ODONNELL ACCOUNT: [id number] : 1965 LOCATION: ER AGE: 56 SEX: F EXAM STATUS: REG ER ORD. PHYSICIAN: OLAF GIBSON MD REASON: syncope PROCEDURE: CHEST AP ONLY EXAM: CHEST ONE VIEW. HISTORY: Syncope. COMPARISON: 05/31/2021. FINDINGS: A frontal view of the chest is obtained. There are no confluent infiltrates. There is no pneumothorax or pleural effusion. The heart is not enlarged. Changes of cervical fusion are noted. There are atherosclerotic calcifications of the aorta. Cholecystectomy clips are noted. IMPRESSION: 1. No confluent infiltrates. Electronically signed by: Donna Thompson MD (08/05/2021 2:51 PM) [facility] DICTATED AND SIGNED BY: YESICA THOMPSON MD DATE: 08/05/211449 CC: OLAF GIBSON MD; FLACO PEREZ MD ~MTH0 0 Heart Score: C/O Chest Pain: No HEART Score for Chest Pain: HEART Score for Chest Pain Response (Comments) Value History Slighlty/Non-Suspicious 0 ECG Normal 0 Age >45 - < 65 1 Risk Factors 1 or 2 Risk Factors 1 Troponin < Normal Limit 0 Total 2 Risk Factors: Risk Factors: DM, Current or recent (<one month) smoker, HTN, HLP, family history of CAD, obesity. Risk Scores: Score 0 - 3: 2.5% MACE over next 6 weeks - Discharge Home Score 4 - 6: 20.3% MACE over next 6 weeks - Admit for Clinical Observation Score 7 - 10: 72.7% MACE over next 6 weeks - Early Invasive Strategies Course & Med Decision Making: Course & Med Decision Making Pertinent Labs and Imaging studies reviewed. (See chart for details) [] Dragon Disclaimer: Dragon Disclaimer: This electronic medical record was generated, in whole or in part, using a voice recognition dictation system. Departure Departure: Impression: Primary Impression: Syncope and collapse Disposition: ADMITTED INPATIENT Admitting Physician: Flaco Perez Condition: STABLE Referrals: FLACO PEREZ MD (PCP) OLAF GIBSON MD Aug 05, 2021 14:06
--- NOTE | 2021-08-05 14:19 | EKG ---
[address] [address] Test Date: 2021-08-05 Test Time: 14:09:48 Pat Name: DELFINA ODONNELL Department: Room: Gender: F Actuarial Manager: MICHELE : 1965 Requested By: OLAF GIBSON Order Number: [id number] Reading MD: Agustín Latif Measurements Intervals [place] Rate: 58 P: 44 TN: 148 QRS: 13 QRSD: 90 T: 44 QT: 426 QTc: 422 Interpretive Statements SINUS RHYTHM MILD NONSPECIFIC ST WAVE CHANGES Electronically Signed On 08-06-2021 9:34:02 CONTINUOUS PROCESS [employer]EE RO[employer]ER by Agustín Latif
[2021-08-05 14:32] LABS: BASO # 0.1 x10^3/uL (0.0-0.2); BASO % 1 % (0-3); EOS # 0.1 x10^3/uL (0.0-0.7); EOS % 1 % (0-3); HEMATOCRIT 43.3 % (36.0-47.0); HEMOGLOBIN 14.6 g/dL (12.0-15.5); LYMPH % 19 % (24-48); MEAN CORPUSCULAR HEMOGLOBIN 33 pg (25-35); MEAN CORPUSCULAR HGB CONC 34 g/dL (31-37); MEAN CORPUSCULAR VOLUME 96 fL (79-100); MONO # 0.7 x10^3/uL (0.0-1.1); MONO % 6 % (0-9); NEUT # 7.9 x10^3uL (1.8-7.7); NEUT % 73 % (31-73); PLATELET COUNT 217 x10^3/uL (140-400); RED BLOOD COUNT 4.49 x10^6/uL (3.50-5.40); RED CELL DISTRIBUTION WIDTH 13.7 % (11.5-14.5); WHITE BLOOD COUNT 10.8 x10^3/uL (4.0-11.0)
[2021-08-05 14:46] LABS: CALCIUM 9.1 mg/dL (8.5-10.1); CREATININE 0.9 mg/dL (0.6-1.0); GFR 64.8; POTASSIUM 3.7 mmol/L (3.5-5.1)
--- NOTE | 2021-08-05 14:53 | RAD ---
EXAM: CHEST ONE VIEW. HISTORY: Syncope. COMPARISON: 05/31/2021. FINDINGS: A frontal view of the chest is obtained. There are no confluent infiltrates. There is no pneumothorax or pleural effusion. The heart is not en larged. Changes of cervical fusion are noted. There are atherosclerotic calcifications of the aorta. Cholecystectomy clips are noted. IMPRESSION: 1. No confluent infiltrates. Electronically signed by: Donna Thompson MD (08/05/2021 2:51 PM) [facility]
[2021-08-05 14:58] LABS: ALBUMIN/GLOBULIN RATIO 1.1 (1.0-1.7); MAGNESIUM 2.1 mg/dL (1.8-2.4); TOTAL BILIRUBIN 0.6 mg/dL (0.2-1.0); TOTAL PROTEIN 7.8 g/dL (6.4-8.2)
--- NOTE | 2021-08-05 15:16 | RAD ---
EXAM: 1. CT HEAD WITHOUT CONTRAST. 2. CT CERVICAL SPINE WITHOUT CONTRAST. HISTORY: Syncope, fall, trauma. TECHNIQUE: Computed tomography of the head and cervical spine was performed without intravenous contr ast. One or more of the following individualized dose reduction techniques were utilized for this exa mination: 1. Automated exposure control. 2. Adjustment of the mA and/or kV according to patient size. 3. Use of iterative reconstruction technique. COMPARISON: 05/04/2020. FINDINGS: There is no intracranial hemorrhage. Barr-white differentiation is preserved. The ventricl es are normal in size and position. The visualized paranasal sinuses appear clear. The orbits are unremarkable. The temporal bones are un remarkable. The calvarium reveals no suspicious lesions. There are anterior cervical discectomy and fusion changes from C4 through C6. Alignment is maintained . The craniocervical junction is unremarkable. No fractures are identified. There is mild degenerativ e disc disease at C6-7. There is no prevertebral soft tissue swelling. There is mild uncovertebral osteoarthritis bilaterally at C5-6 without significant neural foraminal s tenosis. IMPRESSION: 1. No acute intracranial findings. Next were 2. No cervical fracture or acute malalignment. 3. C4-C6 anterior cervical discectomy and fusion. Mild degenerative changes at C6-7. Electronically signed by: Donna Thompson MD (08/05/2021 3:13 PM) [facility]
[2021-08-05] MEDS ORDERED: ACETAMINOPHEN 325 MG TABLET PO PRN (15:45)
[2021-08-05] MEDS ORDERED: ONDANSETRON PF 4 MG/2 ML VIAL. IVP PRN (15:45)
[2021-08-05 15:48] LABS: BILIRUBIN,URINE NEG (NEG); CLARITY,URINE CLEAR; COLOR,URINE YELLOW; GLUCOSE,URINE NEG (NEG); NITRITE,URINE NEG (NEG); RBC,URINE 0 /HPF (0-2); UROBILINOGEN,URINE 0.2 mg/dL (0.2 mg/dL)
[2021-08-05 15:49] LABS: BACTERIA,URINE FEW /HPF (0-FEW); SQUAMOUS EPITHELIAL CELL,UR MANY /LPF
[2021-08-05] MEDS ORDERED: PANT40TA6 PO (18:24)
[2021-08-05] MEDS ORDERED: ERGO2000 PO (18:24)
[2021-08-05] MEDS ORDERED: GLIP5TAB10 PO (18:24)
[2021-08-05] MEDS ORDERED: EZET10TA20 PO (18:24)
[2021-08-05] MEDS ORDERED: MELO10CA3 PO (18:24)
[2021-08-05] MEDS ORDERED: MONT-38 PO (18:24)
[2021-08-05] MEDS ORDERED: ASPI81TA59 PO (18:24)
[2021-08-05] MEDS ORDERED: GABA100C81 PO (18:24)
[2021-08-05] MEDS ORDERED: TRAZ150T49 PO (18:24)
[2021-08-05] MEDS ORDERED: CARI3CAP PO (18:24)
[2021-08-05] MEDS ORDERED: ATORVASTATIN CA80 MG PO (18:24)
[2021-08-05] MEDS ORDERED: CETI-212 PO (18:24)
[2021-08-05] MEDS ORDERED: traZODone 150 MG TABLET. PO SCH (21:00)
[2021-08-05] MEDS ORDERED: CARIPRAZINE HYDROCHLORIDE PO SCH (21:00)
[2021-08-05] MEDS: GABAPENTIN 300 MG CAPSULE. PO SCH (21:57)
[2021-08-06] MEDS ORDERED: PANTOPRAZOLE 40 MG TABLET. PO SCH (07:30)
[2021-08-06 08:40] LABS: CALCIUM 8.7 mg/dL (8.5-10.1); CREATININE 0.8 mg/dL (0.6-1.0); GFR 74.2; POTASSIUM 4.3 mmol/L (3.5-5.1)
[2021-08-06 08:54] LABS: BASO # 0.1 x10^3/uL (0.0-0.2); BASO % 1 % (0-3); EOS # 0.1 x10^3/uL (0.0-0.7); EOS % 1 % (0-3); HEMOGLOBIN 13.8 g/dL (12.0-15.5); LYMPH # 1.8 x10^3/uL (1.0-4.8); LYMPH % 18 % (24-48); MEAN CORPUSCULAR HEMOGLOBIN 33 pg (25-35); MEAN CORPUSCULAR HGB CONC 34 g/dL (31-37); MEAN CORPUSCULAR VOLUME 97 fL (79-100); MONO # 0.6 x10^3/uL (0.0-1.1); MONO % 6 % (0-9); NEUT # 7.5 x10^3uL (1.8-7.7); NEUT % 74 % (31-73); PLATELET COUNT 207 x10^3/uL (140-400); RED BLOOD COUNT 4.25 x10^6/uL (3.50-5.40); RED CELL DISTRIBUTION WIDTH 14.3 % (11.5-14.5); WHITE BLOOD COUNT 10.1 x10^3/uL (4.0-11.0)
[2021-08-06] MEDS ORDERED: glipiZIDE 5 MG TABLET PO SCH (09:00)
[2021-08-06] MEDS ORDERED: CETIRIZINE HCL 10 MG TABLET PO SCH (09:00)
[2021-08-06] MEDS ORDERED: MONTELUKAST 10 MG TABLET. PO SCH (09:00)
[2021-08-06] MEDS ORDERED: ASPIRIN CHEWABLE 81 MG TABLET. PO SCH (09:00)
[2021-08-06] MEDS ORDERED: MELOXICAM 15 MG TABLET. PO SCH (09:00)
[2021-08-06] MEDS ORDERED: ATORVASTATIN CALCIUM 20 MG TABLET PO SCH (09:00)
[2021-08-06] MEDS ORDERED: EZETIMIBE 10 MG TABLET PO SCH (09:00)
[2021-08-06] MEDS: GABAPENTIN 300 MG CAPSULE. PO SCH (11:18)
[2021-08-06 12:02] VITALS: BP 115/67
[2021-08-12] MEDS ORDERED: CHOLECALCIFEROL (VITAMIN D3) 50,000 UNIT CAPSULE PO SCH (09:00)
== END 2021-08-06 12:15 | disposition admitted as inpatient to this hospital (09) ==
LOC: ER 13:35
DX: R55 Syncope and collapse (principal); I50.9 Heart failure, unspecified; J44.9 Chronic obstructive pulmonary disease, unspecified; E11.9 Type 2 diabetes mellitus without complications; Z88.1 Allergy status to other antibiotic agents; W18.39XA Other fall on same level, initial encounter; Y93.89 Activity, other specified; Y92.89 Other specified places as the place of occurrence of the external cause; Y99.8 Other external cause status
CPT/HCPCS: 36415; 70450; 71045; 72125; 80048; 80053; 81001; 82947; 83605; 83735; 83880; 84100; 84484; 85025; 87086; 87426; 93005; 99285; U0003